=== PATIENT | female | born 1995 ===

== ENCOUNTER 2018-03-30 22:32 | Emergency (ER) | payer SELFPAY ==
[2018-03-30 22:40] VITALS: BP 133/91
[2018-03-30 23:45] LABS: HCG Qualitative,Urine Negative (Negative)
== END 2018-03-30 23:00 | disposition left against medical advice (07) ==
LOC: ED 22:32
DX: R06.02 Shortness of breath (principal); Z53.21 Procedure and treatment not carried out due to patient leaving prior to being seen by health care provider
CPT/HCPCS: 81025; 93005; 93010